=== PATIENT | male | born 1975 | race Caucasian/White ===

== ENCOUNTER 2017-02-10 23:54 | Inpatient (IN) | payer BC ==
--- NOTE | ~2017-02-10 | DS ---
Discharge Summary [address] [place]. [address] NAME: CHANDRAKANT WALLER : 79 STATUS : DIS IN PAT#: [id number] AGE: 41 ADM/REG DATE : 02/10/17 MR#: [id number] REPORT SERV DATE: 02/13/17 DICTATED BY: DENYS ORNELAS DATE: 02/12/17 REPORT STATUS : Draft TRANSCRIBED BY: ARTHUR DATE: 02/12/17 ADMISSION DATE: 02/10/2017 DISCHARGE DATE: 02/12/2017 DISCHARGE DIAGNOSES: 1. Acute decompensated heart failure with reduced EF. 2. Nonischemic cardiomyopathy. 3. Heroin abuse. 4. Amphetamine abuse. 5. Polysubstance abuse. 6. Tobacco abuse. DISCHARGE CONDITION: Stable. CONSULTATION: Cardiology Dr. Anibal Mayfield. HISTORY OF PRESENT ILLNESS: For detailed HPI, please make reference to Dr. Junaid Nguyen's dictation on 02/11/2017. In summary, this is a 41-year-old male with medical history of polysubstance abuse, known ischemic cardiomyopathy who presented to the hospital with shortness of breath, chest discomfort, and fluid overload. In the ER, he was found to have a blood pressure of 120/82, respiratory rate of 20, oxygen saturation 98%. Physical exam noted for diffuse bibasilar crackles, lower extremity edema all the way to the knee. BNP noted to be elevated, troponin less than 0.02. INR was 1.3. Chest x-ray shows cardiomegaly with mild vascular prominence. An assessment of acute decompensated heart failure was made. The patient was admitted to the Hospitalist Service. HOSPITAL COURSE: Acute decompensated heart failure with reduced ejection fraction. The patient has extensive history of noncompliance with medication. Urine studies were positive for amphetamine and opiate use. The patient admits to continue using "speed" which may have precipitated this patient's acute worsening decompensated heart failure. Also noncompliance with medication. The patient reports that he never followed up with diagnostic delivery analyst at [facility] where he was diagnosed with nonischemic cardiomyopathy. The patient has not been compliant with his medication. I reached out to the [facility] at [facility] who reported that the patient had a left heart catheterization in 2013 that shows nonocclusive coronaries but patient never followed up in their clinic the primary delivery analyst have actually left the group . It was okay for patient to have a new cardiology evaluation elsewhere. Hence, Cardiology was consulted. An echocardiogram was done that shows that the patient's EF is still in the 20 Cardiology recommended optimization of medical therapy at this time. The patient was discharged on: 1. Coreg 3.125 mg p.o. b.i.d. 2. Lisinopril 5 mg p.o. daily. 3. Spironolactone 25 mg p.o. daily. 4. Lasix 40 mg p.o. daily. Discharge Summary [address] [address] NAME: CHANDRAKANT WALLER : 79 STATUS : DIS IN PAT#: [id number] AGE: 41 ADM/REG DATE : 02/10/17 MR#: [id number] REPORT SERV DATE: 02/13/17 DICTATED BY: DENYS ORNELAS DATE: 02/12/17 REPORT STATUS : Draft TRANSCRIBED BY: ARTHUR DATE: 02/12/17 The patient was advised to continue follow up with primary care physician as an outpatient and to follow up with Cardiology as an outpatient. No invasive cardiac intervention was pursued during the course of this admission. The patient was counseled extensively to stop IV drug use and amphetamine abuse as this will result in worsening of his cardiac function and possible sudden . The patient's mother was at the bedside during this counseling. The patient admits that he would not use drugs again, and his mother promised that the patient will go to rehab for further drug treatment. The patient was also advised to consult with housing case manager to assist with possible health insurance and disability as the patient had no health insurance at the time of this admission. Tobacco abuse. The patient continued to smoke cigarettes despite extensive counseling during this admission. The patient declined nicotine patch during this admission. The patient was counseled to continue to abstain from cigarette use. DISCHARGE DISPOSITION: Home with family. DISCHARGE CONDITION: Stable. DISCHARGE ACTIVITY: As tolerated. DICTATED BY: MD JOSIE QuinnO/ARTHUR Denys Ornelas MD / [id number] CC: Denys Ornelas MD [facility]
--- NOTE | ~2017-02-10 | CN ---
Consultation Report [address] [place]. [address] NAME: CHANDRAKANT WALLER : 79 STATUS : DIS IN PAT#: [id number] AGE: 41 ADM/REG DATE : 02/10/17 MR#: [id number] REPORT SERV DATE: 02/12/17 DICTATED BY: ANIBAL RODRIGUEZ DATE: 02/12/17 REPORT STATUS : Draft TRANSCRIBED BY: MODL DATE: 02/12/17 CARDIOLOGY CONSULTATION DATE OF CONSULTATION: PHARMACY TECHNICIAN INPATIENT: Dr. Gamez[facility]. REASON FOR CONSULTATION: Cardiomyopathy. HISTORY OF PRESENT ILLNESS: Mr. Waller is a 41-year-old man who is followed by Dr. Gamez to up to a year ago or so. He has a history of nonischemic cardiomyopathy from his report, which has been going on for several years, which is felt to be related to previous drug use. He had a history of an LVEF in the 25% to 30% range. He has actually done relatively well until over the past several weeks, during which time, he has had some worsening dyspnea and fatigue with increasing edema and orthopnea. He has a manual labor job, doing rock work and building rock kaye. He had a harder time doing that certainly in comparison to the other fellows that he was working with. After direct questioning and also reports that his decline, he really started when he started using speed again. He has occasional dizziness and occasional skipped beats. He has had no syncope. Occasional chest discomfort with his dyspnea. REVIEW OF SYSTEMS: The review of systems is as per the history of present illness. Ten other systems are negative. PAST MEDICAL HISTORY: 1. Nonischemic cardiomyopathy with LVEF 25% to 30%. 2. Remote history of IV drug use. FAMILY HISTORY: Positive for heart disease later in life. SOCIAL HISTORY: The patient is . He reports occasional alcohol use, ongoing tobacco use, and recent starting of using amphetamines again. ALLERGIES: NO KNOWN DRUG ALLERGIES. HOME MEDICINES: None. PHYSICAL EXAMINATION: VITAL SIGNS: Heart rates 98 and blood pressure 98/71. GENERAL: The patient is a pleasant, somewhat healthy appearing white male, no apparent distress. HEENT: Conjunctivae are anicteric, no xanthelasma, lips without cyanosis. NECK: Supple. His jugular venous pressure is not significantly elevated by my exam. Consultation Report [facility] [address] [place]. [address] NAME: CHANDRAKANT WALLER : 79 STATUS : DIS IN PAT#: [id number] AGE: 41 ADM/REG DATE : 02/10/17 MR#: [id number] REPORT SERV DATE: 02/12/17 DICTATED BY: ANIBAL RODRIGUEZ DATE: 02/12/17 REPORT STATUS : Draft TRANSCRIBED BY: ARTHUR DATE: 02/12/17 LUNGS: Occasional rare crackles in the bases. CARDIOVASCULAR: Regular rate and rhythm. Normal S1 and S2. Soft S4. ABDOMEN: Soft, nontender, nondistended, with normal bowel sounds. No hepatomegaly. EXTREMITIES: No edema. NEURO/PSYCH: Alert and oriented to person, place and time. No obvious neurologic deficits. Mood and affect normal. DATA: Echocardiogram with EF of 25% with significant mitral and tricuspid regurgitation. EKG with sinus rhythm and poor R-wave progression on the EKG. IMPRESSION: 1. Nonischemic cardiomyopathy. 2. Acute on chronic congestive heart failure secondary to worsening left ventricular dysfunction and recurrent drug use. 3. Polysubstance abuse. 4. Tobacco abuse. 5. Medication noncompliance. 6. Nonsustained ventricular tachycardia noted on telemetry. RECOMMENDATIONS: Mr. Waller is an unfortunate gentleman who does have a significant cardiomyopathy. It has been evaluated in the past and certainly is most likely related to his drug use and that has certainly precipitated his decline as well as his lack of medical treatment. I had a long discussion with him about the importance of aggressive medical management and the importance of cessation of his drug use, tobacco use, and alcohol. I also discussed his work situation. I think it is unlikely over the long-term that he will be able to continue a manual labor and consider and I recommended he consider following for disability, so he can have some insurance coverage to follow up. I have stressed the importance of medication management for this condition that would have to be done before we consider any other evaluation or treatment of his cardiomyopathy. In the future that would consist of being evaluated on appropriate medical therapy to see if would be candidate for defibrillator and/or biventricular pacing with his left ventricular dysfunction and symptoms. I have had this discussion with him and the hospitalist. KAITLYN/ARTHUR Anibal Rodriguez M.D., Ph.D, F.A.C.C. / [id number] CC: Denys Hernandes MD Consultation Report [address] [place]. [address] NAME: CHANDRAKANT WALLER AKOSUA : 79 STATUS : DIS IN PAT#: [id number] AGE: 41 ADM/REG DATE : 02/10/17 MR#: [id number] REPORT SERV DATE: 02/12/17 DICTATED BY: ANIBAL RODRIGUEZ DATE: 02/12/17 REPORT STATUS : Draft TRANSCRIBED BY: MODL DATE: 02/12/17 KATHY REYES
--- NOTE | ~2017-02-10 | HP ---
History And Physical [address] [place]. [address] NAME: CHANDRAKANT WALLER : 79 STATUS : ADM IN [facility]#: [id number] AGE: 41 ADM/REG DATE : 02/10/17 MR#: [id number] REPORT SERV DATE: 02/11/17 DICTATED BY: NOELLE RODRIGES DATE: 02/11/17 REPORT STATUS : Draft TRANSCRIBED BY: MODL DATE: 02/11/17 DATE OF ADMISSION: 02/10/2017 CHIEF COMPLAINT: A 41-year-old male presenting with volume overload, shortness of breath, and chest pain. HISTORY OF PRESENT ILLNESS: The patient's history was obtained through careful interview with the patient, coupled with review of [facility] medical records. The patient states that for a week or so, he has been having increasing fatigue on exertion with dyspnea on exertion as well. Then, over the last several days, he has noticed new onset lower extremity edema around his ankles. He has a discomfort because of it, a tightness needle like discomfort 5/10 severity, exacerbated by weightbearing. He has also had shortness of breath characterized by orthopnea, stacking up pillows at night to prop himself up with episodes of paroxysmal nocturnal dyspnea and a smothering feeling at night. He describes a nonproductive cough, lightheadedness, abdominal bloating but no pain. He has then developed chest discomfort on the evening leading up to admission in his mid chest without radiation, a pressure like quality, 6/10 severity. He has had no fevers but he does describe chills. He has had some nausea, but no vomiting. REVIEW OF SYSTEMS: Otherwise, 14-point review of systems was obtained and was negative. PAST MEDICAL HISTORY: 1. Septic knee, septic right hip, iliopsoas abscess with MRSA bacteremia, all of this in 2012, possibly related to IV drug abuse. 2. Gout. 3. Ejection fraction 25% to 30% in 2013. PAST SURGICAL HISTORY: 1. Septic knee 2012. 2. Septic right hip 2012. ALLERGIES: NO KNOWN DRUG ALLERGIES. SOCIAL HISTORY: The patient is a smoker still. Drinks alcohol, usually 1 or 2 drinks a week only. He lives in [place], [place] with his girlfriend. He is , has children ages 15, 19, and 20. 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 History And Physical [address] [address] NAME: CHANDRAKANT WALLER : 79 STATUS : ADM IN PAT#: [id number] AGE: 41 ADM/REG DATE : 02/10/17 MR#: [id number] REPORT SERV DATE: 02/11/17 DICTATED BY: NOELLE RODRIGES DATE: 02/11/17 REPORT STATUS : Draft TRANSCRIBED BY: MODSydney DATE: 02/11/17 He has previous significant IV drug abuse history but states that he has been abstinent for about four years. FAMILY HISTORY: Heart disease. MEDICATIONS: Currently denying home medications. PHYSICAL EXAMINATION: VITAL SIGNS: Temperature 97.5, pulse 108, blood pressure 120/82, respiratory rate 20, O2 saturation 98% on room air. GENERAL: A pleasant, cooperative male. No evidence of acute distress. HEENT: Pupils are equal, round, and reactive to light. No conjunctival pallor. No scleral icterus. Nares are patent. Oropharynx is clear of obstruction. Moist mucous membranes. NECK: Trachea midline. No thyromegaly. LYMPH: No cervical lymphadenopathy. No supraclavicular lymphadenopathy. RESPIRATORY: The patient has wet rales at the base of lungs. No wheezes, no rhonchi. A labored respiratory effort. CARDIOVASCULAR: Tachycardic, regular rhythm. No murmurs, rubs, or gallops can be appreciated at this time. The patient does have jugular venous distention and pitting lower extremity edema from just below the knee downward particularly deep around the ankles, symmetrically. ABDOMEN: Distended, minimally tender throughout. No hepatosplenomegaly. DERMATOLOGICAL: Warm and dry extremities. No pallor, no cyanosis. PSYCHIATRIC: Normal affect. Good mood. Alert and oriented x3. LABORATORY DATA: Brain natriuretic peptide elevated, troponin negative, INR 1.3, white blood cell count 7.0, hemoglobin 11.6, hematocrit 36.3, platelets 190. Sodium 140, potassium 4.0, chloride 106, bicarb 21, BUN 15, creatinine 1.0, glucose 122. STUDIES: EKG by my own evaluation shows sinus rhythm, left ventricular hypertrophy, ST depressions and T-wave inversions in leads V5 through V6. ASSESSMENT AND PLAN: 1. Systolic congestive heart failure exacerbation with history of ejection fraction 25% to 30% by review of echocardiogram in 2013. Recheck an echocardiogram. Place on IV diuretic, LOPEZ inhibitor, and beta toni. 2. Chest pain. Start aspirin. Check a nuclear cardiac stress test. 3. History of IV drug abuse. Claims abstinence for the last four years. Check urine drug screen nonetheless. PAM/ARTHUR Noelle Rodriges M.D. History And Physical [address] [address] NAME: CHANDRAKANT WALLER : 79 STATUS : ADM IN [facility]#: [id number] AGE: 41 ADM/REG DATE : 02/10/17 MR#: [id number] REPORT SERV DATE: 02/11/17 DICTATED BY: NOELLE RODRIGES DATE: 02/11/17 REPORT STATUS : Draft TRANSCRIBED BY: ARTHUR DATE: 02/11/17 / [id number] CC: Denys Hernandes MD
[2017-02-11 05:08] LABS: ASCORBIC ACID (UR NOT ORDER) NEG (NEG); BILIRUBIN, URINE NEGATIVE (NEG); KETONE, URINE NEGATIVE (NEG); LEUKOCYTE ESTERASE(NOT OR NEG (NEG); WBC (NOT ORDERED) (RFLEX) < 1 (0-5)
[2017-02-11 05:09] LABS: AMPHETAMINES (NOT ORD) POS (NEG); BENZODIAZEPINES (NOT ORD) NEG (NEG); COCAINE (NOT ORDERED) NEG (NEG); PHENCYCLIDINE(PCP) NEG (NEG)
[2017-02-11 05:10] LABS: BARBITURATES (NOT ORDERED NEG (NEG); CANNABINOIDS (THC) NEG (NEG); OPIATES POS (NEG); TRICYCLICS NEG (NEG)
[2017-02-11 06:20] LABS: BASOPHILS ABSOLUTE 0.07 10/3/uL (0.0-0.16); EOSINOPHILS 3.5 %; EOSINOPHILS ABSOLUTE 0.24 10/3/uL (0.0-0.53); HEMATOCRIT 36.6 % (40.0-51.0); HEMOGLOBIN 11.8 g/dL (13.6-17.8); IMMATURE GRANULOCYTES 0.1 %; IMMATURE GRANULOCYTES ABSOLUTE 0.01 10/3/uL (0.0-0.11); LYMPHOCYTES 22.5 %; LYMPHOCYTES ABSOLUTE 1.55 10/3/uL (0.67-4.30); MEAN CORPUS HGB CONC 32.2 g/dL (32.0-36.0); MEAN CORPUSCULAR HEMOGLOB 26.4 pg (26.0-34.0); MEAN CORPUSCULAR VOLUME 81.9 fL (80-100); MEAN PLATELET VOLUME 9.8 fL (9.2-13.0); MONOCYTES 10.4 %; MONOCYTES ABSOLUTE 0.72 10/3/uL (0.21-1.20); NEUTROPHILS 62.5 %; PLATELET COUNT 240 10/3/uL (150-400); RBC DISTRIBUTION WIDTH 14.5 % (12.0-16.0); RED CELL COUNT 4.47 10/6/uL (4.7-6.1); WHITE BLOOD CELLS 6.9 10/3/uL (4.5-10.5)
[2017-02-11 06:21] LABS: MANUAL DIFF NO %
[2017-02-11 06:22] LABS: INTERNATIONAL NORMAL RATI 1.3 UNITS (-); PARTIAL THROMBO TIME 30.4 SEC (22.5-37.2); PROTIME (NOT ORD) 15.9 SEC (12.0-14.5)
[2017-02-11 06:37] LABS: A/G RATIO 1.1 (0.7-1.9); ALBUMIN 3.1 G/DL (3.5-5.0); ALKALINE PHOSPHATASE 130 U/L (45-117); BUN (BLOOD UREA NITROGEN) 13 MG/DL (6-23); CALCIUM, SERUM 8.5 MG/DL (8.5-10.4); CHLORIDE, SERUM 105 MMOL/L (96-112); CO2 (CARBON DIOXIDE) 27 MMOL/L (24-34); CREATININE 1.01 MG/DL (0.70-1.30); GFR AFRICAN AMERICAN 108 ML/MIN (>=60); GFR NON AFRICAN AMERICAN 93 ML/MIN (>=60); GLOBULIN 2.9 G/DL (2.5-4.1); GLUCOSE, SERUM 81 MG/DL (60-99); SGOT(AST) 32 U/L (5-40); SGPT(ALT) 38 U/L (5-65); SODIUM, SERUM 141 MMOL/L (135-148); TOTAL BILIRUBIN 0.7 MG/DL (0-1.2); TROPONIN I 0.03 NG/ML (<0.05)
[2017-02-12 04:40] LABS: BASOPHILS 0.7 %; BASOPHILS ABSOLUTE 0.04 10/3/uL (0.0-0.16); EOSINOPHILS 5.4 %; HEMATOCRIT 36.2 % (40.0-51.0); HEMOGLOBIN 11.7 g/dL (13.6-17.8); IMMATURE GRANULOCYTES 0.2 %; IMMATURE GRANULOCYTES ABSOLUTE 0.01 10/3/uL (0.0-0.11); LYMPHOCYTES 27.5 %; LYMPHOCYTES ABSOLUTE 1.54 10/3/uL (0.67-4.30); MEAN CORPUS HGB CONC 32.3 g/dL (32.0-36.0); MEAN CORPUSCULAR HEMOGLOB 26.9 pg (26.0-34.0); MEAN CORPUSCULAR VOLUME 83.2 fL (80-100); MONOCYTES 11.3 %; MONOCYTES ABSOLUTE 0.63 10/3/uL (0.21-1.20); NEUTROPHILS 54.9 %; NEUTROPHILS ABSOLUTE 3.08 10/3/uL (2.02-8.40); PLATELET COUNT 231 10/3/uL (150-400); RBC DISTRIBUTION WIDTH 14.5 % (12.0-16.0); RED CELL COUNT 4.35 10/6/uL (4.7-6.1); WHITE BLOOD CELLS 5.6 10/3/uL (4.5-10.5)
[2017-02-12 04:55] LABS: ALBUMIN 2.8 G/DL (3.5-5.0); ALKALINE PHOSPHATASE 122 U/L (45-117); CALCIUM, SERUM 8.6 MG/DL (8.5-10.4); CHLORIDE, SERUM 102 MMOL/L (96-112); CO2 (CARBON DIOXIDE) 31 MMOL/L (24-34); CREATININE 1.06 MG/DL (0.70-1.30); GFR AFRICAN AMERICAN 102 ML/MIN (>=60); GFR NON AFRICAN AMERICAN 88 ML/MIN (>=60); GLOBULIN 2.9 G/DL (2.5-4.1); GLUCOSE, SERUM 95 MG/DL (60-99); POTASSIUM, SERUM 3.9 MMOL/L (3.5-5.3); SGOT(AST) 27 U/L (5-40); SGPT(ALT) 34 U/L (5-65); SODIUM, SERUM 137 MMOL/L (135-148); TOTAL BILIRUBIN 0.3 MG/DL (0-1.2); TOTAL PROTEIN 5.7 G/DL (6.0-8.5)
[2017-02-12 04:56] LABS: BUN (BLOOD UREA NITROGEN) 17 MG/DL (6-23); MANUAL DIFF NO %
[2017-02-12] MEDS ORDERED: COREG3 (11:31)
[2017-02-12] MEDS ORDERED: COREG3 PO (11:31)
[2017-02-12] MEDS ORDERED: PRIN5 PO (11:32)
[2017-02-12] MEDS ORDERED: ASAB PO (11:33)
[2017-02-12] MEDS ORDERED: HABIT21 TOP (11:33)
[2017-02-12] MEDS ORDERED: SPIRO25 PO (11:34)
== END 2017-02-12 20:07 | disposition home or self-care (01) | DRG 292 ==
LOC: 7NO 23:54
PROVIDERS: Hospitalist
DX: I50.23 Acute on chronic systolic (congestive) heart failure (principal); I47.2 Ventricular tachycardia; I42.9 Cardiomyopathy, unspecified; F17.210 Nicotine dependence, cigarettes, uncomplicated; F11.10 Opioid abuse, uncomplicated; F15.10 Other stimulant abuse, uncomplicated; Z91.14 Patient's other noncompliance with medication regimen; Z72.89 Other problems related to lifestyle; I08.1 Rheumatic disorders of both mitral and tricuspid valves
CPT/HCPCS: 71010; 80053; 80305; 81001; 83735; 83880; 84132; 84443; 84484; 85025; 85610; 85730; 93005; A9270-GY; C8929; J1170; Q9957